=== PATIENT | female | born 1985 | race Caucasian/White ===

== ENCOUNTER 2019-09-29 18:21 | Emergency (ER) | payer OTHER ==
[~2019-09-29] VITALS: Ht 170.2 cm; Wt 102.0 kg
[~2019-09-29 18:21] MED LIST: ALBU8.5H8 INH; BENZ-6 PO
[2019-09-29 18:40] VITALS: BP 130/59; PULSE 88; RESP 18; Ht 170.2 cm; Wt 102.0 kg
[2019-09-29] MEDS ORDERED: IPRATROPIUM (NEB) 0.5 MG/2.5 ML AMP NEB STA (19:47)
[2019-09-29] MEDS ORDERED: ALBUTEROL 0.083% (NEB) 2.5 MG/3 ML AMP NEB STA (19:47)
[2019-09-29] MEDS ORDERED: DEXAMETHASONE 10 MG/ML 1 ML INJ PO ONE (20:00)
== END 2019-09-29 21:10 | disposition home or self-care (01) ==
LOC: FTE 18:21
DX: R05 Cough (principal)
CPT/HCPCS: 71045; 94664; J1100; Z7502; Z7610